=== PATIENT | male | born 1960 | race Caucasian/White ===

== ENCOUNTER 2017-05-11 10:59 | Inpatient (IN) | payer OTHER ==
[2017-05-11 11:21] VITALS: BMI 29.5
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
[2017-05-11] MEDS ORDERED: MAGNESIUM CITRATE 300 ML BOTTLE PO PRN (14:35)
[2017-05-11] MEDS ORDERED: hydrOXYzine PAMOATE 50 MG CAPSULE (FP) PO PRN (14:35)
[2017-05-11] MEDS ORDERED: diphenhydrAMINE HCL 50 MG CAPSULE PO PRN (14:35)
[2017-05-11] MEDS ORDERED: NICOTINE POLACRILEX 2 MG GUM BUC PRN (14:35)
[2017-05-11] MEDS ORDERED: LOPERAMIDE HCL 2 MG CAPSULE PO PRN (14:35)
[2017-05-11] MEDS ORDERED: MAG HYDROX/AL HYDROX/SIMETH 30 ML UNIT-DOSE CUP PO PRN (14:35)
[2017-05-11] MEDS ORDERED: MENTHOL/PHENOL 1 EACH UD MM PRN (14:35)
[2017-05-11] MEDS ORDERED: chlordiazePOXIDE HCL 25 MG CAPSULE PO PRN (14:35)
[2017-05-11] MEDS ORDERED: guaiFENesin/D-METHORPHAN HB 10 ML UNIT-DOSE CUPS PO PRN (14:35)
[2017-05-11] MEDS ORDERED: IBUPROFEN 400 MG TABLET (FP) PO PRN (14:35)
[2017-05-11] MEDS ORDERED: P-EPHED 60MG/TRIPROLIDI 2.5MG TABLET PO PRN (14:35)
[2017-05-11] MEDS ORDERED: ACETAMINOPHEN 325 MG TABLET (FP) PO PRN (14:35)
[2017-05-11] MEDS ORDERED: MAGNESIUM HYDROX 2400MG/30ML ORAL SUSPENSION 30 ML CUP PO PRN (14:35)
[2017-05-11] MEDS ORDERED: SODIUM CHLORIDE NASAL SPRAY 44 ML BOTTLE NS PRN (14:40)
[2017-05-11] MEDS ORDERED: chlordiazePOXIDE HCL 25 MG CAPSULE PO ONE (14:45)
[2017-05-11] MEDS ORDERED: ALBUTEROL SO4 6.7 GM HFA INHALER IH PRN (14:53)
[2017-05-11] MEDS: TAMSULOSIN HCL 0.4 MG CAP.ER.24H (FP) PO SCH (15:32)
[2017-05-11] MEDS: NICOTINE 14 MG/24 HOURS TOPICAL PATCH TD SCH (15:33)
[2017-05-11] MEDS: chlordiazePOXIDE HCL 25 MG CAPSULE PO SCH ×2 (17:22→22:48)
[2017-05-11] MEDS: ENALAPRIL MALEATE 10 MG TABLET (FP) PO SCH (22:48)
[2017-05-11] MEDS: THIAMINE HCL 100 MG TABLET (FP) PO SCH (22:48)
[2017-05-11 23:07] LABS: URINE APPEARANCE CLEAR; URINE BILIRUBIN NEGATIVE (NEGATIVE); URINE BLOOD NEGATIVE (NEGATIVE); URINE COLOR YELLOW; URINE GLUCOSE (UA) NEGATIVE (NEGATIVE); URINE KETONE NEGATIVE (NEGATIVE); URINE LEUK ESTERASE NEGATIVE (NEGATIVE); URINE NITRITE NEGATIVE (NEGATIVE); URINE PROTEIN NEGATIVE (NEGATIVE); URINE UROBILINOGEN NEGATIVE E.U./dl (0.2-1.0)
[2017-05-12] MEDS: chlordiazePOXIDE HCL 25 MG CAPSULE PO SCH ×4 (05:33→22:27)
[2017-05-12] MEDS: TAMSULOSIN HCL 0.4 MG CAP.ER.24H (FP) PO SCH (08:40)
[2017-05-12 10:03] LABS: MCH 31.1 pg (25.7-33.7); MCHC 34.2 g/dl (32.0-35.9); MEAN CELL VOLUME 90.9 fl (80-96); MEAN PLT VOLUME 8.3 fl (7.5-11.1); PLATELET COUNT 299 K/MM3 (134-434); RDW 14.4 % (11.9-15.9)
[2017-05-12 10:18] LABS: ALBUMIN 4.1 g/dl (3.4-5.0); ANION GAP 9 (8-16); CO2 22 mmol/L (21-32)
[2017-05-12 10:24] LABS: ALK PHOS 86 U/L (45-117); BILIRUBIN,TOTAL 0.7 mg/dL (0.2-1.0); CREATININE 1.1 mg/dL (0.7-1.3); GLUCOSE,RANDOM 124 mg/dL (74-106); SGOT/AST 38 U/L (15-37); SGPT/ALT 61 U/L (12-78); TOT PROT 8.2 g/dl (6.4-8.2)
[2017-05-12] MEDS: PRENATAL VITAMINS W/ FOLIC ACID TABLET (FP) PO SCH (10:45)
[2017-05-12] MEDS: ENALAPRIL MALEATE 10 MG TABLET (FP) PO SCH ×2 (10:45→22:27)
[2017-05-12] MEDS: NICOTINE 14 MG/24 HOURS TOPICAL PATCH TD SCH (10:45)
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
--- NOTE | 2017-05-12 11:33 | PN ---
[facility] CIWA - CIWA Score Nausea/Vomitin-No Nausea/No Vomiting Muscle Tremors: 4-Moderate,w/Arms Extend Anxiety: 4-Mod. Anxious/Guarded Agitation: 4-Moderately Restless Paroxysmal Sweats: 1-Minimal Palms Moist Orientation: 0-Oriented Tacttile Disturbances: 3-Moderate Itch/Numb/Burn Auditory Disturbances: 0-None Visual Disturbances: 0-None Headache: 0-None Present CIWA-Ar Total Score: 16 S Progress Note (SOAP) Subjective: ANXIETY,SWEATS,IRRITABILITY,HEADACHE, INTERMITTENT SLEEP. Objective: 05/12/17 11:32 Vital Signs Temperature 97.6 F 05/12/17 10:10 Pulse Rate 72 05/12/17 10:10 Respiratory Rate 18 05/12/17 10:10 Blood Pressure 133/77 05/12/17 10:10 O2 Sat by Pulse Oximetry (%) Laboratory Last Values WBC 11.0 K/mm3 (4.0-10.0) H 05/12/17 06:00 RBC 4.48 M/mm3 (4.00-5.60) 05/12/17 06:00 Hgb 13.9 GM/dL (11.7-16.9) 05/12/17 06:00 Hct 40.8 % (35.4-49) 05/12/17 06:00 MCV 90.9 fl (80-96) 05/12/17 06:00 MCHC 34.2 g/dl (32.0-35.9) 05/12/17 06:00 RDW 14.4 % (11.9-15.9) 05/12/17 06:00 Plt Count 299 K/MM3 (134-434) 05/12/17 06:00 MPV 8.3 fl (7.5-11.1) 05/12/17 06:00 Sodium 141 mmol/L (136-145) 05/12/17 06:00 Potassium 4.3 mmol/L (3.5-5.1) 05/12/17 06:00 Chloride 110 mmol/L (98-107) H 05/12/17 06:00 Carbon Dioxide 22 mmol/L (21-32) 05/12/17 06:00 Anion Gap 9 (8-16) 05/12/17 06:00 BUN 16 mg/dL (7-18) 05/12/17 06:00 Creatinine 1.1 mg/dL (0.7-1.3) 05/12/17 06:00 Creat Clearance w eGFR > 60 (>60) 05/12/17 06:00 Random Glucose 124 mg/dL (74-106) H 05/12/17 06:00 Calcium 9.0 mg/dL (8.5-10.1) 05/12/17 06:00 Total Bilirubin 0.7 mg/dL (0.2-1.0) 05/12/17 06:00 AST 38 U/L (15-37) H 05/12/17 06:00 ALT 61 U/L (12-78) 05/12/17 06:00 Alkaline Phosphatase 86 U/L (45-117) 05/12/17 06:00 Total Protein 8.2 g/dl (6.4-8.2) 05/12/17 06:00 Albumin 4.1 g/dl (3.4-5.0) 05/12/17 06:00 Urine Color Yellow 05/11/17 21:52 Urine Appearance Clear 05/11/17 21:52 Urine pH 5.0 (5.0-8.0) 05/11/17 21:52 Urine Protein Negative (NEGATIVE) 05/11/17 21:52 Urine Glucose (UA) Negative (NEGATIVE) 05/11/17 21:52 Urine Ketones Negative (NEGATIVE) 05/11/17 21:52 Urine Blood Negative (NEGATIVE) 05/11/17 21:52 Urine Nitrite Negative (NEGATIVE) 05/11/17 21:52 Urine Bilirubin Negative (NEGATIVE) 05/11/17 21:52 Urine Urobilinogen Negative E.U./dl (0.2-1.0) 05/11/17 21:52 Ur Leukocyte Esterase Negative (NEGATIVE) 05/11/17 21:52 Assessment: 05/12/17 11:32 WITHDRAWAL SX Plan: CONTINUE DETOX FBS X 2 R/O HYPERGLYCEMIA
[2017-05-12] MEDS: QUEtiapine FUMARATE 50 MG TABLET PO SCH (17:13)
[2017-05-12] MEDS: QUEtiapine FUMARATE 200 MG TABLET PO SCH (22:27)
[2017-05-12] MEDS: THIAMINE HCL 100 MG TABLET (FP) PO SCH (22:27)
[2017-05-12] MEDS: traZODone HCL 50 MG TABLET (FP) PO SCH (22:27)
[2017-05-13] MEDS: chlordiazePOXIDE HCL 25 MG CAPSULE PO SCH ×2 (05:44→10:28)
[2017-05-13] MEDS: TAMSULOSIN HCL 0.4 MG CAP.ER.24H (FP) PO SCH (08:34)
[2017-05-13] MEDS: PRENATAL VITAMINS W/ FOLIC ACID TABLET (FP) PO SCH (10:28)
[2017-05-13] MEDS: ENALAPRIL MALEATE 10 MG TABLET (FP) PO SCH ×2 (10:28→21:50)
[2017-05-13] MEDS: QUEtiapine FUMARATE 50 MG TABLET PO SCH ×2 (10:28→17:15)
[2017-05-13] MEDS: NICOTINE 14 MG/24 HOURS TOPICAL PATCH TD SCH (10:29)
--- NOTE | 2017-05-13 15:26 | PN ---
S CIWA - CIWA Score Nausea/Vomitin-Mild Nausea/No Vomiting Muscle Tremors: 4-Moderate,w/Arms Extend Anxiety: 2 Agitation: 2 Paroxysmal Sweats: 3 Orientation: 0-Oriented Tacttile Disturbances: 1-Very Mild Itch/Numbness Auditory Disturbances: 2-Mild Harshness/Frighten Visual Disturbances: 0-None Headache: 3-Moderate CIWA-Ar Total Score: 18 BHS Progress Note (SOAP) Subjective: Tremors, Body Aches, H/A, Sweating. Objective: PT. A & O X 3, OBSERVED AMBULATING ON UNIT. NO ACUTE DISTRESS. 05/13/17 15:24 Vital Signs Temperature 98.2 F 05/13/17 13:54 Pulse Rate 64 05/13/17 13:54 Respiratory Rate 20 05/13/17 13:54 Blood Pressure 125/79 05/13/17 13:54 O2 Sat by Pulse Oximetry (%) Laboratory Tests 05/11/17 05/12/17 05/12/17 21:52 06:00 06:00 WBC 11.0 H RBC 4.48 Hgb 13.9 Hct 40.8 MCV 90.9 MCHC 34.2 RDW 14.4 Plt Count 299 MPV 8.3 Sodium 141 Potassium 4.3 Chloride 110 H Carbon Dioxide 22 Anion Gap 9 BUN 16 Creatinine 1.1 Creat Clearance w eGFR > 60 Random Glucose 124 H Calcium 9.0 Total Bilirubin 0.7 AST 38 H ALT 61 Alkaline Phosphatase 86 Total Protein 8.2 Albumin 4.1 Urine Color Yellow Urine Appearance Clear Urine pH 5.0 Ur Specific [place] 1.025 Urine Protein Negative Urine Glucose (UA) Negative Urine Ketones Negative Urine Blood Negative Urine Nitrite Negative Urine Bilirubin Negative Urine Urobilinogen Negative Ur Leukocyte Esterase Negative RPR Titer 05/12/17 06:00 WBC RBC Hgb Hct MCV MCHC RDW Plt Count MPV Sodium Potassium Chloride Carbon Dioxide Anion Gap BUN Creatinine Creat Clearance w eGFR Random Glucose Calcium Total Bilirubin AST ALT Alkaline Phosphatase Total Protein Albumin Urine Color Urine Appearance Urine pH Ur Specific [place] Urine Protein Urine Glucose (UA) Urine Ketones Urine Blood Urine Nitrite Urine Bilirubin Urine Urobilinogen Ur Leukocyte Esterase RPR Titer Nonreactive LABS NOTED. Assessment: 05/13/17 15:25 WITHDRAWAL SYMPTOMS. Plan: CONTINUE DETOX. BGM ACBK TOMORROW FOR ELEVATED RANDOM ADMISSION GLUCOSE LEVEL.
[2017-05-13] MEDS: chlordiazePOXIDE 5 MG CAPSULE PO SCH ×2 (17:15→22:27)
[2017-05-13] MEDS: QUEtiapine FUMARATE 200 MG TABLET PO SCH (21:50)
[2017-05-13] MEDS: traZODone HCL 50 MG TABLET (FP) PO SCH (21:50)
[2017-05-13] MEDS: THIAMINE HCL 100 MG TABLET (FP) PO SCH (21:50)
[2017-05-14] MEDS: chlordiazePOXIDE 5 MG CAPSULE PO SCH ×2 (05:26→10:20)
[2017-05-14] MEDS: TAMSULOSIN HCL 0.4 MG CAP.ER.24H (FP) PO SCH (09:11)
[2017-05-14] MEDS: ENALAPRIL MALEATE 10 MG TABLET (FP) PO SCH ×2 (10:19→22:09)
[2017-05-14] MEDS: PRENATAL VITAMINS W/ FOLIC ACID TABLET (FP) PO SCH (10:19)
[2017-05-14] MEDS: NICOTINE 14 MG/24 HOURS TOPICAL PATCH TD SCH (10:19)
[2017-05-14] MEDS: QUEtiapine FUMARATE 50 MG TABLET PO SCH ×2 (10:19→16:57)
--- NOTE | 2017-05-14 13:21 | PN ---
S Progress Note (SOAP) Subjective: Tremor, chills, anxious, sweating Objective: 05/14/17 13:17 Last Vital Signs Temp Pulse Resp BP Pulse Ox 96.7 F L 73 18 125/78 05/14/17 11:12 05/14/17 11:12 05/14/17 11:12 05/14/17 11:12 Laboratory Tests 05/11/17 05/12/17 05/12/17 21:52 06:00 06:00 WBC 11.0 H RBC 4.48 Hgb 13.9 Hct 40.8 MCV 90.9 MCHC 34.2 RDW 14.4 Plt Count 299 MPV 8.3 Sodium 141 Potassium 4.3 Chloride 110 H Carbon Dioxide 22 Anion Gap 9 BUN 16 Creatinine 1.1 Creat Clearance w eGFR > 60 POC Glucometer Random Glucose 124 H Calcium 9.0 Total Bilirubin 0.7 AST 38 H ALT 61 Alkaline Phosphatase 86 Total Protein 8.2 Albumin 4.1 Urine Color Yellow Urine Appearance Clear Urine pH 5.0 Ur Specific [place] 1.025 Urine Protein Negative Urine Glucose (UA) Negative Urine Ketones Negative Urine Blood Negative Urine Nitrite Negative Urine Bilirubin Negative Urine Urobilinogen Negative Ur Leukocyte Esterase Negative RPR Titer 05/12/17 05/14/17 06:00 05:28 WBC RBC Hgb Hct MCV MCHC RDW Plt Count MPV Sodium Potassium Chloride Carbon Dioxide Anion Gap BUN Creatinine Creat Clearance w eGFR POC Glucometer 130 Random Glucose Calcium Total Bilirubin AST ALT Alkaline Phosphatase Total Protein Albumin Urine Color Urine Appearance Urine pH Ur Specific [place] Urine Protein Urine Glucose (UA) Urine Ketones Urine Blood Urine Nitrite Urine Bilirubin Urine Urobilinogen Ur Leukocyte Esterase RPR Titer Nonreactive Labs noted: wbc 11.0, serum glucose 124mg/dl, fingerstick 130mg/dl Assessment: 05/14/17 13:19 Withdrawal symptoms Noted with leukocytosis and hyperglycemia Plan: Continue detox Leukocytosis: asymptomatic, repeat CBC in AM Hyperglycemia: start fingerstick glucose ac meal, send fasting BMP in AM, send HbA1c in AM, consider initiating metformin if warranted. Follow up with PCP post discharge for monitoring/management. Lifestyle modification: diet and exercise as tolerated, avoiding sugary intake, eating more fruits and vegetables and decreasing starchy food in diet.
[2017-05-14] MEDS: chlordiazePOXIDE HCL 10 MG CAPSULE PO SCH ×2 (16:56→22:08)
[2017-05-14] MEDS: THIAMINE HCL 100 MG TABLET (FP) PO SCH (22:08)
[2017-05-14] MEDS: traZODone HCL 50 MG TABLET (FP) PO SCH (22:09)
[2017-05-14] MEDS: QUEtiapine FUMARATE 200 MG TABLET PO SCH (22:09)
--- NOTE | 2017-05-14 22:22 | EKG ---
Test Reason : Blood Pressure : / mmHG Vent. Rate : 069 BPM Atrial Rate : 069 BPM P-R Int : 154 ms QRS Dur : 100 ms QT Int : 406 ms P-R-T Axes : 065 054 065 degrees QTc Int : 435 ms NORMAL SINUS RHYTHM NONSPECIFIC ST AND T WAVE ABNORMALITY NO PREVIOUS ECGS AVAILABLE Confirmed by JOE GARCIA, DAT ([id number]) on 05/14/2017 10:22:19 PM Referred By: Confirmed By:DAT DIAZ MD
[2017-05-15] MEDS: chlordiazePOXIDE HCL 10 MG CAPSULE PO SCH (06:47)
[2017-05-15] MEDS: TAMSULOSIN HCL 0.4 MG CAP.ER.24H (FP) PO SCH (08:31)
[2017-05-15] MEDS: PRENATAL VITAMINS W/ FOLIC ACID TABLET (FP) PO SCH (08:32)
[2017-05-15] MEDS: ENALAPRIL MALEATE 10 MG TABLET (FP) PO SCH (08:32)
[2017-05-15 08:54] VITALS: TEMP 97
[2017-05-15 08:57] VITALS: BP 136/89; PULSE 76
[2017-05-15] MEDS: QUEtiapine FUMARATE 50 MG TABLET PO SCH (09:19)
[2017-05-15] MEDS: NICOTINE 14 MG/24 HOURS TOPICAL PATCH TD SCH (09:19)
--- NOTE | 2017-05-15 13:18 | DS ---
[facility] Detox Discharge Summary Admission Date: 05/11/17 Discharge Date: 05/15/17 - History Present History: Alcohol Dependence, Cannabis Dependence, Cocaine Dependence Additional Comments: ADVISED PATIENT TO FOLLOW-UP FOR AFTERCARE PER DISCHARGE ARRANGEMENT. Pertinent Past History: Hypercholesterolemia, GERD, HTN, Bipolar disorder, Depression, Asthma, History of Seizures, PTSD. - Physical Exam Results Vital Signs: Vital Signs Temperature 97.0 F L 05/15/17 08:54 Pulse Rate 76 05/15/17 08:54 Respiratory Rate 18 05/15/17 08:54 Blood Pressure 136/89 05/15/17 08:54 O2 Sat by Pulse Oximetry (%) Pertinent Admission Physical Exam Findings: WITHDRAWAL SYMPTOMS. Laboratory Tests 05/11/17 05/12/17 05/12/17 21:52 06:00 06:00 WBC 11.0 H RBC 4.48 Hgb 13.9 Hct 40.8 MCV 90.9 MCHC 34.2 RDW 14.4 Plt Count 299 MPV 8.3 Sodium 141 Potassium 4.3 Chloride 110 H Carbon Dioxide 22 Anion Gap 9 BUN 16 Creatinine 1.1 Creat Clearance w eGFR > 60 POC Glucometer Random Glucose 124 H Calcium 9.0 Total Bilirubin 0.7 AST 38 H ALT 61 Alkaline Phosphatase 86 Total Protein 8.2 Albumin 4.1 Urine Color Yellow Urine Appearance Clear Urine pH 5.0 Ur Specific [place] 1.025 Urine Protein Negative Urine Glucose (UA) Negative Urine Ketones Negative Urine Blood Negative Urine Nitrite Negative Urine Bilirubin Negative Urine Urobilinogen Negative Ur Leukocyte Esterase Negative RPR Titer 05/12/17 05/14/17 05/14/17 06:00 05:28 16:19 WBC RBC Hgb Hct MCV MCHC RDW Plt Count MPV Sodium Potassium Chloride Carbon Dioxide Anion Gap BUN Creatinine Creat Clearance w eGFR POC Glucometer 130 178 Random Glucose Calcium Total Bilirubin AST ALT Alkaline Phosphatase Total Protein Albumin Urine Color Urine Appearance Urine pH Ur Specific [place] Urine Protein Urine Glucose (UA) Urine Ketones Urine Blood Urine Nitrite Urine Bilirubin Urine Urobilinogen Ur Leukocyte Esterase RPR Titer Nonreactive 05/15/17 06:12 WBC RBC Hgb Hct MCV MCHC RDW Plt Count MPV Sodium Potassium Chloride Carbon Dioxide Anion Gap BUN Creatinine Creat Clearance w eGFR POC Glucometer 103 Random Glucose Calcium Total Bilirubin AST ALT Alkaline Phosphatase Total Protein Albumin Urine Color Urine Appearance Urine pH Ur Specific [place] Urine Protein Urine Glucose (UA) Urine Ketones Urine Blood Urine Nitrite Urine Bilirubin Urine Urobilinogen Ur Leukocyte Esterase RPR Titer LABS NOTED. - Treatment Hospital Course: Detox Protocol Followed, Detoxed Safely, Responded well, Discharged Condition Good Patient has Accepted a Rehab Referral to: PATIENT DECLINES. 12-STEP / AA OUTPATIENT DAY PROGRAMS RECOMMENDED. - Medication Discharge Medications: Ambulatory Orders Quetiapine Fumarate [Seroquel -] 50 mg PO TID 05/11/17 Quetiapine Fumarate [Seroquel -] 200 mg PO HS 05/11/17 Trazodone HCl [Desyrel -] 50 mg PO HS 05/11/17 Quetiapine Fumarate [Seroquel -] 50 mg PO TID #90 tablet 05/12/17 Quetiapine Fumarate [Seroquel -] 200 mg PO HS #30 tab 05/12/17 Trazodone HCl [Desyrel -] 50 mg PO HS #30 tablet 05/12/17 Tamsulosin HCl [Flomax] 0.4 mg PO DAILY #30 mg 05/15/17 - Diagnosis (1) Alcohol dependence with uncomplicated withdrawal Status: Acute (2) Bipolar II disorder Status: Acute (3) Cannabis abuse Status: Acute (4) Cocaine dependence Status: Acute Qualifiers: Substance use status: uncomplicated Qualified Code(s): F14.20 - Cocaine dependence, uncomplicated (5) Nicotine dependence Status: Chronic Qualifiers: Nicotine product type: cigarettes Substance use status: uncomplicated Qualified Code(s): F17.210 - Nicotine dependence, cigarettes, uncomplicated (6) PTSD (post-traumatic stress disorder) Status: Chronic (7) GERD (gastroesophageal reflux disease) Status: Chronic Qualifiers: Esophagitis presence: without esophagitis Qualified Code(s): K21.9 - Gastro-esophageal reflux disease without esophagitis (8) History of asthma Status: Chronic (9) Hypertension Status: Chronic Qualifiers: Hypertension type: essential hypertension Qualified Code(s): I10 - Essential (primary) hypertension (10) History of seizure Status: Suspected (11) Hypercholesterolemia Status: Suspected - AMA Did Patient Leave Against Medical Advice: No
== END 2017-05-15 09:56 | disposition home or self-care (01) | DRG 897 ==
LOC: YASAS 10:59 → Y3N 13:05
PROVIDERS: ADMIT Internal Medicine; ATTEND Internal Medicine
PROC: HZ2ZZZZ Detoxification Services for Substance Abuse Treatment (ICD-10-PCS; principal; 2017-05-11)
DX: F10.230 Alcohol dependence with withdrawal, uncomplicated (principal); F14.20 Cocaine dependence, uncomplicated; F31.81 Bipolar II disorder; F12.10 Cannabis abuse, uncomplicated; F17.210 Nicotine dependence, cigarettes, uncomplicated; F43.10 Post-traumatic stress disorder, unspecified; K21.0 Gastro-esophageal reflux disease with esophagitis; I10 Essential (primary) hypertension; E78.5 Hyperlipidemia, unspecified; B18.2 Chronic viral hepatitis C; D72.829 Elevated white blood cell count, unspecified; R73.9 Hyperglycemia, unspecified; Z86.69 Personal history of other diseases of the nervous system and sense organs; Z87.09 Personal history of other diseases of the respiratory system; Z88.0 Allergy status to penicillin; Z91.5 Personal history of self-harm
CPT/HCPCS: 36415; 80053; 81003; 85027; 86593; 93005; 93010